=== PATIENT | male | born 1970 | race Hispanic/Latino ===

== ENCOUNTER → 2017-04-02 | Outpatient (CLI) | payer OTHER | END | disposition home or self-care (01) | LOC: SLP 19:59 | PROVIDERS: ATTEND Internal Medicine Critical Care Medicine | DX: G47.10 Hypersomnia, unspecified (principal); G47.30 Sleep apnea, unspecified; E66.9 Obesity, unspecified; R06.83 Snoring; R40.0 Somnolence | CPT/HCPCS: 95811 ==